=== PATIENT | male | born 1985 | race Caucasian/White ===

== ENCOUNTER 2021-09-28 13:18 | Emergency (ER) | payer MEDICAID, MEDICARE, OTHER ==
[~2021-09-28] VITALS: Ht 177.8 cm; Wt 79.5 kg
[2021-09-28] MEDS ORDERED: MAGNESIUM GLUCONATE 500MG TABLET PO SCH (15:30)
[2021-09-28 15:32] LABS: BASOPHILS % 0.1 % (0.0-2.0); HEMATOCRIT. 46.7 % (42.0-52.0); HEMOGLOBIN. 15.9 g/dL (14.0-18.0); LYMPHOCYTES % 9.2 % (20.0-50.0); MEAN CORPUSCULAR VOLUME 88.3 fL (80.0-94.0); MEAN PLATELET VOLUME 8.3 fl (7.4-10.4); NEUTROPHILS % 83.7 % (40.0-76.0); PLATELET 308 x1000/uL (130-400); RED BLOOD CELL COUNT 5.29 mill/uL (4.7-6.1); RED CELL DISTRIBUTION WIDTH 14.7 % (11.6-14.6)
[2021-09-28 15:38] LABS: CHLORIDE 102 mEq/L (98-107)
[2021-09-28 15:43] LABS: ETHANOL BLOOD < 10 mg/dL
[2021-09-28] MEDS ORDERED: FAMOTIDINE 20MG/2ML VIAL IV STA (17:36)
[2021-09-28] MEDS ORDERED: ONDANSETRON HCL 4MG/2ML INJ IV STA (17:36)
[2021-09-28] MEDS ORDERED: SODIUM CHLORIDE 0.9% 1,000 ML IV ONE (17:45)
[2021-09-28] MEDS ORDERED: MAGNESIUM 2 G PREMIX 50 ML IV ONE (17:45)
[2021-09-29 00:52] VITALS: BP 126/65
== END 2021-09-29 00:53 | disposition home or self-care (01) ==
LOC: ER 13:26
DX: T43.621A Poisoning by amphetamines, accidental (unintentional), initial encounter (principal); G92.8 Other toxic encephalopathy; R94.31 Abnormal electrocardiogram [ECG] [EKG]; F41.9 Anxiety disorder, unspecified; F32.A Depression, unspecified; F12.10 Cannabis abuse, uncomplicated; F11.10 Opioid abuse, uncomplicated; Z88.2 Allergy status to sulfonamides; Y92.89 Other specified places as the place of occurrence of the external cause
CPT/HCPCS: 36415; 70450; 80053; 80307; 80320; 80329; 85025; 93005; 96365; 96366; 96375; 99285; J2405; J3475; J3490; J7030; G0480

== ENCOUNTER 2021-09-30 12:23 | Emergency (ER) | payer MEDICAID, MEDICARE ==
[~2021-09-30] VITALS: Ht 177.8 cm; Wt 91.0 kg
[2021-09-30] MEDS ORDERED: SODIUM CHLORIDE 0.9% 1,000 ML IV ONE (12:45)
[2021-09-30] MEDS ORDERED: ACTIVATED CHARCOAL 50 G/240 ML TUBE PO ONE (12:45)
[2021-09-30 13:05] LABS: BASOPHILS % 0.4 % (0.0-2.0); EOSINOPHILS % 0.2 % (0.0-5.0); LYMPHOCYTES % 17.9 % (20.0-50.0); MEAN CORPUSCULAR VOLUME 87.9 fL (80.0-94.0); MEAN PLATELET VOLUME 8.3 fl (7.4-10.4); MONOCYTES % 11.6 % (2.0-8.0); NEUTROPHILS % 69.9 % (40.0-76.0); PLATELET 262 x1000/uL (130-400); RED BLOOD CELL COUNT 4.66 mill/uL (4.7-6.1); RED CELL DISTRIBUTION WIDTH 14.4 % (11.6-14.6)
[2021-09-30 13:16] LABS: CHLORIDE 100 mEq/L (98-107)
[2021-09-30 13:21] LABS: ETHANOL BLOOD < 10 mg/dL
[2021-09-30 13:48] LABS: CLARITY URINE CLOUDY (CLEAR); COLOR URINE DARK YELLOW (YELLOW); KETONES URINE TRACE (NEGATIVE); LEUKOCYTE ESTERASE URINE NEGATIVE (NEGATIVE); NITRITE URINE NEGATIVE (NEGATIVE); OCCULT BLOOD URINE NEGATIVE (NEGATIVE); PH URINE 5.5 (4.5-8.0); PROTEIN URINE 1+ (NEGATIVE); SPECIFIC GRAVITY URINE 1.035 (1.005-1.030)
[2021-09-30 14:04] LABS: OPIATES URINE SCREEN NEGATIVE (NEGATIVE)
[2021-09-30 14:05] LABS: *AMPHETAMINES SCREEN URINE NEGATIVE (NEGATIVE); *BARBITURATES SCREEN URINE NEGATIVE (NEGATIVE); *BENZODIAZEPINES SCREEN URINE NEGATIVE (NEGATIVE); *COCAINE SCREEN URINE NEGATIVE (NEGATIVE); CANNABINOID URINE SCREEN PRESUMTIVE POSITIVE (NEGATIVE); METHADONE URINE SCREEN PRESUMTIVE POSITIVE (NEGATIVE); PHENCYCLIDINE URINE SCREEN NEGATIVE (NEGATIVE)
[2021-09-30] MEDS ORDERED: POTASSIUM CHLORIDE 20MEQ TABLET SR PO ONE (15:00)
[2021-10-01] MEDS ORDERED: OLANZAPINE 10 MG/VIAL IM SCH (09:00)
[2021-10-01] MEDS ORDERED: LORAZEPAM 2MG/ML CPJ IV SCH (09:00)
[2021-10-01] MEDS ORDERED: FLUOXETINE HCL 10 MG CAPSULE PO SCH (10:00)
[2021-10-01] MEDS ORDERED: ONDANSETRON HCL 4MG/2ML INJ IV ONE (11:45)
[2021-10-01] MEDS ORDERED: LORAZEPAM 1MG TABLET PO ONE (13:45)
[2021-10-01 17:20] VITALS: BP 143/78
[2021-10-02] MEDS ORDERED: OLANZAPINE 5MG TABLET PO SCH (09:00)
== END 2021-10-01 19:21 ==
LOC: ER 12:23
DX: T46.5X1A Poisoning by other antihypertensive drugs, accidental (unintentional), initial encounter (principal); R45.851 Suicidal ideations; E87.6 Hypokalemia; Z20.822 Contact with and (suspected) exposure to COVID-19; Z86.59 Personal history of other mental and behavioral disorders; Z88.2 Allergy status to sulfonamides; Y92.9 Unspecified place or not applicable
CPT/HCPCS: 36415; 80053; 80305; 80307; 80320; 80329; 81003; 85025; 93005; 96361; 96372; 96374; 96375; 99285; C9803; J2060; J2405; J3490; J7030; U0003; U0005; G0480